=== PATIENT | male | born 1950 | race Caucasian/White ===

== ENCOUNTER 2017-10-28 11:40 | Observation (INO) ==
[2017-10-28] MEDS ORDERED: Aspirin 81 MG TAB.CHEW PO ONE (11:53)
--- NOTE | 2017-10-28 11:56 | Emergency Department Note ---
Disposition Clinical Impression: Chest pain Qualifiers: Chest pain type: unspecified Qualified Code(s): R07.9 - Chest pain, unspecified Disposition: Admitted As Inpatient Condition: Undetermined Time of Disposition: 13:02 Chest Pain HPI - General Chief Complaint: ED Chest Pain Stated Complaint: Chest Pain Time Seen by Provider: 10/28/17 11:42 Source: patient, family Mode of arrival: ambulatory Limitations: no limitations Vital Signs Reviewed: Yes Nursing Notes Reviewed: Yes - History of Present Illness HPI Narrative: 67-year-old male with history of diabetes, hyperlipidemia, hypertension, COPD, arrives to [facility] emergency department with concern for left-sided and retrosternal chest pain that occurred just prior to arrival. The patient was getting labs performed at another facility for kidney disease as well as a few other things and noted this left-sided chest discomfort. The patient states it radiated into his left shoulder. The patient denies any shortness of breath associated with it. Upon arrival to the emergency department the patient has an O2 saturation of 90% which is apparently the patient's baseline due to his COPD. Patient does not wear oxygen at home. The patient denies any nausea, vomiting, unilateral weakness, fever, cough, chills. The patient states his last stress test was over 2 years ago. He denies any other complaints at this time. He is chest pain-free. 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 Duration: intermittent, now resolved Pain Location: substernal, left chest Severity: moderate Severity scale (1-10): 5 Quality: tightness, heaviness Pain Radiation: LUE Improves with: nothing Worsens with: nothing Treatments prior to arrival chest pain: none - Related Data On Oral Contraceptives: No Home Medications Medication Instructions Recorded Confirmed Amlodipine Besylate 10 mg PO DAILY 05/13/16 10/28/17 Furosemide [Lasix] 40 mg PO QAM 05/13/16 10/28/17 Lisinopril/Hydrochlorothiazide 1 each PO DAILY 05/13/16 10/28/17 [Zestoretic 20-25 mg Tablet] Metformin HCl [Glucophage] 1,000 mg PO BID 05/13/16 10/28/17 Tamsulosin HCl [Flomax] 0.8 mg PO DAILY 05/13/16 10/28/17 Potassium Chloride [K-Tab ER] 20 meq PO BID 05/26/17 10/28/17 Terazosin [Hytrin] 5 mg PO HS 05/26/17 10/28/17 Atorvastatin [Lipitor] 40 mg PO HS 10/28/17 10/28/17 Furosemide [Lasix] 20 mg PO HS 10/28/17 10/28/17 Metoprolol XL (24 HR) Succ [Toprol 100 mg PO DAILY 10/28/17 10/28/17 XL] Onset-3 Acid Ethyl Esters [Lovaza] 2 gm PO BID 10/28/17 10/28/17 SitaGLIPtin [Januvia] 100 mg PO DAILY 10/28/17 10/28/17 Allergies Allergy/AdvReac Type Severity Reaction Status Date / Time No Known Allergies Allergy Verified 10/28/17 11:42 All systems ED: reviewed and negative except as stated. Constitutional: Denies: fever, chills, weakness ENT ED: Denies: throat pain, congestion Cardiovascular: Reports: chest pain Respiratory: Denies: dyspnea Gastrointestinal: Denies: abdominal pain, nausea, vomiting Genitourinary: Denies: urgency Musculoskeletal: Denies: back pain, neck pain, arthralgia, myalgia Integumentary: Denies: rash Neurological: Denies: headache Chest Pain PMH - Past Medical History Medical history: Reports: CHF, COPD, diabetes, hypertension Surgical history: Reports: non-contributory Psychiatric history: Reports: no psych history Prior Cardiac Testing/Procedures: Stress Test (5 years ago) - Social History Smoking Status: Current every day smoker Alcohol use: Reports: occasionally Drug use: Reports: none Physical Exam - General Limitations: no limitations General appearance: alert, in no apparent distress - Head Head exam: atraumatic - Eye Eye exam: Present: normal appearance, PERRL, EOMI - ENT ENT exam: normal exam, normal oropharynx, mucous membranes moist - Neck Neck exam: Present: normal inspection, full ROM, trachea midline - Respiratory Respiratory exam: Present: other (coarse breath sounds). Absent: respiratory distress, accessory muscle use - Cardiovascular Cardiovascular exam: Present: regular rate, normal rhythm, normal heart sounds - Abdominal Exam Abdominal exam: Present: soft, Non-Tender. Absent: tenderness, distention, guarding, rebound, rigidity - Extremities Exam Extremities exam: Present: full ROM, pedal edema (Trace pitting edema). Absent : tenderness Course Vital Signs Temperature 97.8 F 10/28/17 11:42 Pulse Rate 62 10/28/17 11:42 Respiratory Rate 13 10/28/17 11:42 Blood Pressure 128/77 10/28/17 11:42 O2 Sat by Pulse Oximetry 91 10/28/17 11:42 Temperature 98 F 10/28/17 14:42 Pulse Rate 61 10/28/17 14:42 Respiratory Rate 16 10/28/17 14:42 Blood Pressure 121/71 10/28/17 14:42 O2 Sat by Pulse Oximetry 93 10/28/17 14:42 Oxygen Delivery Oxygen Delivery Room Air Chest Pain - MDM Narrative Medical decision making narrative: Patient's work-up demonstrates no acute process. I am concerned about ACS given the symptoms, history, and timing. We will mix the patient to the hospitalist at this time, accepted by Dr. Mason. - Lab Data Lab results reviewed: Yes I reviewed the patient's lab results. Result diagrams: 10/28/17 12:05 10/28/17 12:05 Lab Results 10/28/17 10/28/17 10/28/17 Range/Units 12:05 12:05 12:05 WBC 7.5 (4.3-11.1) K/mcL RBC 5.57 H (4.19-5.50) M/mcL Hgb 15.8 (12.9-16.9) g/dL Hct 47.7 (37.5-50.1) % MCV 85.6 (83.0-100.0) fL MCH 28.4 (28.0-33.3) pg MCHC 33.1 (31.6-35.5) g/dL RDW 13.4 (11.5-14.5) % Plt Count 235 (140-400) K/mcL MPV 10.1 (9.4-12.4) fL Immature Gran % 0.4 (0-4) % Seg Neutrophils % 57.2 % Lymphocytes % 30.0 % Monocytes % 9.4 % Eosinophils % 2.5 % Basophils % 0.5 % Neutrophils # 4.3 (1.6-8.9) K/mcL Lymphocytes # 2.2 (0.6-4.6) K/mcL Monocytes # 0.7 (0.0-1.3) K/mcL Eosinophils # 0.2 (0.0-0.6) K/mcL Basophils # 0.0 (0.0-0.2) K/mcL Immature Plt Fraction 3.3 (1.1-6.1) % PT 11.9 (9.4-12.1) Seconds INR 1.1 APTT 40.2 H (26.0-36.0) Seconds Sodium (136-145) mEq/L Potassium (3.5-4.5) mEq/L Chloride (98-109) mEq/L Carbon Dioxide (19-29) mEq/L BUN (8-26) mg/dL Creatinine (0.72-1.25) mg/dL Est GFR ( Amer) (> 60) Est GFR (Non-Af Amer) (> 60) BUN/Creatinine Ratio (6-26) Glucose (70-99) mg/dL Calculated Osmolality (280-300) Calcium (8.6-10.8) mg/dL Troponin I (0-0.03) ng/mL B-Natriuretic Peptide 37 (0-100) pg/mL Amylase (25-125) Units/L 10/28/17 10/28/17 Range/Units 12:05 12:05 WBC (4.3-11.1) K/mcL RBC (4.19-5.50) M/mcL Hgb (12.9-16.9) g/dL Hct (37.5-50.1) % MCV (83.0-100.0) fL MCH (28.0-33.3) pg MCHC (31.6-35.5) g/dL RDW (11.5-14.5) % Plt Count (140-400) K/mcL MPV (9.4-12.4) fL Immature Gran % (0-4) % Seg Neutrophils % % Lymphocytes % % Monocytes % % Eosinophils % % Basophils % % Neutrophils # (1.6-8.9) K/mcL Lymphocytes # (0.6-4.6) K/mcL Monocytes # (0.0-1.3) K/mcL Eosinophils # (0.0-0.6) K/mcL Basophils # (0.0-0.2) K/mcL Immature Plt Fraction (1.1-6.1) % PT (9.4-12.1) Seconds INR APTT (26.0-36.0) Seconds Sodium 139 (136-145) mEq/L Potassium 4.1 (3.5-4.5) mEq/L Chloride 103 (98-109) mEq/L Carbon Dioxide 25 (19-29) mEq/L BUN 18 (8-26) mg/dL Creatinine 1.23 (0.72-1.25) mg/dL Est GFR ( Amer) > 60 (> 60) Est GFR (Non-Af Amer) 59 L (> 60) BUN/Creatinine Ratio 15 (6-26) Glucose 129 H (70-99) mg/dL Calculated Osmolality 292 (280-300) Calcium 9.8 (8.6-10.8) mg/dL Troponin I 0.01 (0-0.03) ng/mL B-Natriuretic Peptide (0-100) pg/mL Amylase 46 (25-125) Units/L - Radiology Data Radiology results reviewed: Yes I reviewed the patient's radiology results. - EKG Data EKG attestation: Yes I reviewed and interpreted this EKG. EKG results narrative: Heart rate 62 bpm. IA interval 186 ms. QTC 4:15 milliseconds. Normal sinus rhythm. No ST elevation or ST depression noted. EKG similar to EKG from 2016. No acute changes noted. Attestation Statement - Attestation Attestation: I examined this patient and my medical decision-making was reviewed with the Resident Physician, Dr. Dowling. I agree with the documented findings, disposition and treatment plan as described except to the extent set forth below. Patient is a 67-year-old white male with a history of COPD, hypertension, diabetes who presents to the emergency department with complaints of left-sided chest pain radiating through to his back which was going on just prior to arrival to the emergency department today. Patient's symptoms had resolved on arrival and he is chest pain-free currently. Patient's vitals are stable he is slightly hypoxic on room air running 90-92%, stating that he is supposed to be on nasal cannula oxygen at all times but he is noncompliant. He denies any associated symptoms with this pain no diaphoresis, no abdominal pain or flank pain, no shortness of breath no other associated symptoms. Patient states he last had a stress test anywhere from 3-5 years ago. I agree with patient's physical exam findings as documented. Patient without acute ischemia on initial EKG, unchanged from prior. Patient was given aspirin on arrival and had a lab evaluation including troponin which was within normal limits. Patient's chest x-ray is unremarkable. Due to patient's risk factors as well as concerning symptoms we feel he would benefit from hospitalization. Upon talking over the case with the hospitalist he requested CTA of the chest prior to admission. Patient underwent CTA which was unremarkable for any aortic abnormality. Patient will be admitted for further evaluation and management of chest pain.
[2017-10-28 12:12] LABS: Basophils % 0.5 %; Eosinophils # 0.2 K/mcL (0.0-0.6); Eosinophils % 2.5 %; Hematocrit 47.7 % (37.5-50.1); Hemoglobin 15.8 g/dL (12.9-16.9); Immature Granulocytes % 0.4 % (0-4); Immature Platelets 3.3 % (1.1-6.1); Lymphocytes # 2.2 K/mcL (0.6-4.6); Mean Corpuscular HGB Conc 33.1 g/dL (31.6-35.5); Mean Corpuscular Hemoglobin 28.4 pg (28.0-33.3); Mean Corpuscular Volume 85.6 fL (83.0-100.0); Mean Platelet Volume 10.1 fL (9.4-12.4); Monocytes # 0.7 K/mcL (0.0-1.3); Monocytes % 9.4 %; Neutrophils # 4.3 K/mcL (1.6-8.9); Platelet Count 235 K/mcL (140-400); Red Blood Count 5.57 M/mcL (4.19-5.50); Red Cell Distribution Width 13.4 % (11.5-14.5); Segmented Neutrophils % 57.2 %
[2017-10-28 12:17] LABS: INR 1.1; Prothrombin Time 11.9 Seconds (9.4-12.1)
[2017-10-28 12:19] LABS: Activated Partial Thrombo Time 40.2 Seconds (26.0-36.0)
[2017-10-28 12:23] LABS: BUN/Creatinine Ratio 15 (6-26); Blood Urea Nitrogen 18 mg/dL (8-26); Calcium 9.8 mg/dL (8.6-10.8); Carbon Dioxide 25 mEq/L (19-29); Chloride 103 mEq/L (98-109); Glucose 129 mg/dL (70-99); Osmolality,Calculated 292 (280-300); Potassium 4.1 mEq/L (3.5-4.5); Sodium 139 mEq/L (136-145); eGFR For African Americans > 60 (> 60); eGFR For Non-African Americans 59 (> 60)
[2017-10-28] MEDS ORDERED: D5% in Water 1,000 ML IVC PRN (13:37)
[2017-10-28] MEDS ORDERED: *HR* Promethazine 25 MG/ML VIAL IVP PRN (13:37)
[2017-10-28] MEDS ORDERED: Dextrose Gel 15 GM PO PRN ×2 (13:37)
[2017-10-28] MEDS ORDERED: *HR* Morphine 2 MG/ML SYRINGE IVP PRN (13:37)
[2017-10-28] MEDS ORDERED: Ondansetron 4 MG/2 ML VIAL IVP PRN (13:37)
[2017-10-28] MEDS ORDERED: *HR* HYDROcodone/Acet 5/325 mg TABLET PO PRN (13:37)
[2017-10-28] MEDS ORDERED: *HR* Dextrose 50 % in Water (Syg) 50 ML SYRINGE IVP PRN (13:37)
[2017-10-28] MEDS ORDERED: Naloxone 0.4 MG/ML INJ IVP PRN (13:37)
--- NOTE | 2017-10-28 13:56 | Internal Med History&Physical ---
<Santo [place]armiento - Last Filed: 10/28/17 14:21> Date of Encounter: 10/28/17 Time of Encounter: 13:53 Assessment and Plan (1) Chest pain Current visit: Yes Status: Acute Reported retrosternal chest pain is left-sided with radiation to the left shoulder reported as beginning this morning lasting approximately 10 minutes. no prior history of AR. Risk factors include diabetes, HLD, HTN, COPD, smoking and obesity. Currently reporting no chest pain at this time, hemodynamically stable, no respiratory distress. Will also check amylase as he is report left retrosternal pain with left subscapular pain Initial troponin negative, chest x-ray negative Presented with hypoxia but does have long-standing history of COPD; however obtain CTA to rule out additional etiology Last TTE was in 2016-showed an EF of 60% with mild left ventricular diastolic dysfunction Reports last stress test was approximately 4 years ago with no ischemia Due to multiple risk factors and her score of 6 continue to rule out ACS TTE now Serial troponins Nuclear stress in the morning Nothing by mouth after midnight-no caffeine, no nicotine. Hold morning dose of beta wally We will hold off on cardio consult for now Continuous telemetry, continuous O2 monitoring CBC, BMP in the morning Qualifiers: Chest pain type: unspecified Qualified Code(s): R07.9 - Chest pain, unspecified (2) DM (diabetes mellitus) Current visit: Yes Status: Acute History of type 2 diabetes. 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 Patient takes 100 mg of Toprol-XL daily. Has already taken today's dose. We will hold tomorrow morning's dose until after stress test Qualifiers: Hypertension type: essential hypertension Qualified Code(s): I10 - Essential (primary) hypertension (4) COPD (chronic obstructive pulmonary disease) Current visit: Yes Status: Acute Fine bilateral expiratory wheezing and hypoxia noted on arrival to ED. Related to COPD, not in any distress since starting 2LNC, he is to wear O2 at home but refuses. education provided on importance of oxygen compliance; especially given his history and current morbidities Start solumedrol 40mg IVP to reduce airway inflammation Respiratory support via NC, titrate to maintain O2 >92% duonebs every 4 hours when necessary Qualifiers: Qualified Code(s): J44.9 - Chronic obstructive pulmonary disease, unspecified (5) Hypoxia Current visit: Yes Status: Acute Was hypoxic upon arrival. Long-standing history of COPD requiring oxygen. Patient reports he does not wear oxygen at home is normally able to maintain oxygen saturations around 90-92%. However, he presented as hypoxic to the ED. Improved with 2 L nasal cannula, in no distress at this time. Fine expiratory wheezes auscultated bilaterally lungs. see plan above (6) DVT prophylaxis Current visit: Yes Status: Acute Heparin 5000 units subcutaneous twice a day Internal Medicine - H&P: HPI Chief complaint: CP Admitted From: Home Plans for Post Hospital Care: Home History of present illness: Mr. Lance is a 67 year old male with history of diabetes, hyperlipidemia, hypertension, COPD, who presents to [facility] today with retrosternal chest pain beginning this morning and lasting approximately 10 minutes. He reports the chest pain is left-sided with left subscapular radiation. No prior history of AR. Although does also risk factors. Denies any fever, chills, shortness of breath, diaphoresis, nausea, vomiting. Did not receive aspirin or nitroglycerin in the ED. Currently chest pain-free at this time. Heart score of 6, with associated risk factors he is being admitted for further workup and monitoring. Past Med Surg Social Fam HX - Past Medical History Medical history: CHF, COPD, diabetes, hypertension Psychiatric history: no psych history - Past Surgical History Surgical History: non-contributory - Social History Smoking Status: Current every day smoker Alcohol use: occasionally Drug use: none - Family History Mother Hx Family Endocrine Disorder: Yes (DM, CKD) Father Hx Family Neurologic Disorders: Yes (CVA) Internal Medicine - H&P: Meds Amlodipine Besylate 10 mg PO DAILY 05/13/16 [History] Furosemide [Lasix] 40 mg PO QAM 05/13/16 [History] Lisinopril/Hydrochlorothiazide [Zestoretic 20-25 mg Tablet] 1 each PO DAILY 11/28 [History] Metformin HCl [Glucophage] 1,000 mg PO BID 05/13/16 [History] Tamsulosin HCl [Flomax] 0.8 mg PO DAILY 05/13/16 [History] Potassium Chloride [K-Tab ER] 20 meq PO BID 05/26/17 [History] Terazosin [Hytrin] 5 mg PO HS 05/26/17 [History] Atorvastatin [Lipitor] 40 mg PO HS 10/28/17 [History] Furosemide [Lasix] 20 mg PO HS 10/28/17 [History] Metoprolol XL (24 HR) Succ [Toprol XL] 100 mg PO DAILY 10/28/17 [History] [place]-3 Acid Ethyl Esters [Lovaza] 2 gm PO BID 10/28/17 [History] SitaGLIPtin [Januvia] 100 mg PO DAILY 10/28/17 [History] 3 Allergy/AdvReac Type Severity Reaction Status Date / Time No Known Allergies Allergy Verified 10/28/17 11:42 All Systems PM: A 10-system review of systems was performed and is negative for pertinent findings except as documented above in the HPI. - Constitutional Constitutional: no chills, no fatigue, no fever(s), no night sweats, no weakness - EENT Eyes: no change in vision, no discharge, no pain, no photophobia Ears: no ear discharge, no ear pain, no tinnitus Nose, mouth and throat: no dysphagia, no nasal discharge, no neck pain, no sore throat - Cardiovascular Cardiovascular ROS IM: chest pain, no diaphoresis, no dyspnea, no edema, no lightheadedness, no palpitations, no syncope - Respiratory Respiratory: no cough, no dyspnea, no wheezing, no excessive phlegm production - Gastrointestinal Gastrointestinal: no abdominal pain, no diarrhea, no hematemesis, no hematochezia, no melena, no nausea, no vomiting - Musculoskeletal Musculoskeletal ROS IM: no numbness, no tingling - Integumentary Integumentary IM: no rash, no unusual bruising - Neurological Neurological ROS: no confusion, no convulsions, no focal weakness, no numbness, no tingling, no tremor(s) - Hematologic/Lymphatic Hematologic/Lymphatic: no easy bruising - Constitutional Vitals: Temp Pulse Resp BP Pulse Ox 97.8 F 61 12 138/69 91 10/28/17 11:42 10/28/17 13:35 10/28/17 13:42 10/28/17 13:42 10/28/17 13:35 General appearance: Present: A&O X 0, A&O X 3, no acute distress, obese, answers questions appropriately - Head Head exam: Present: atraumatic, normocephalic - Eye Eye exam: Present: PERRL, conjuntiva pink, sclera anicteric Pupils: Present: PERRL - Neck Neck exam general surgery: Present: supple, trachea midline. Absent: lymphadenopathy - Respiratory Respiratory exam: Present: CTAB. Absent: accessory muscle use, rales, rhonchi, wheezes - Cardiovascular Cardiovascular exam: Present: RRR, +S1, +S2. Absent: diastolic murmur, gallop, rubs, systolic murmur - GI/Abdominal GI/Abdominal exam: Present: normal bowel sounds, soft, no peritoneal signs. Absent: distended, tenderness - Extremities Exam Extremities exam: Present: warm, radial pulses palpable and symmetrical. Absent : calf tenderness, cyanotic, pedal edema - Neurological Exam Neurological exam: Present: CN II-XII intact, oriented X3, no focal deficits. Absent: pronater drift, facial droop, speech deficit - Skin Skin exam: Present: dry, intact Internal Med - H&P Results - Labs CBC & Chem 7: 10/28/17 12:05 10/28/17 12:05 - EKG Data -: EKG Interpreted by Myself EKG shows normal: sinus rhythm Rate: normal - EKG Data Prior EKG available for review: yes When compared to previous EKG: there is no significant change Interpretation IM: normal EKG EKG comments: 10/28/17 14:00 NSR rate of [address] elevation or depression noted - Diagnostic Studies Chest x-ray Additional comments: no acute pulmonary process <Candi Mason - Last Filed: 10/28/17 16:09> Date of Encounter: 10/28/17 Internal Medicine - H&P: HPI History of present illness: Mr. Lance is a 67 year old male All Systems PM: A 10-system review of systems was performed and is negative for pertinent findings except as documented above in the HPI. - Constitutional Vitals: Temp Pulse Resp BP Pulse Ox 98 F 61 16 121/71 93 10/28/17 14:42 10/28/17 14:42 10/28/17 14:42 10/28/17 14:42 10/28/17 14:42 Internal Med - H&P Results - Labs CBC & Chem 7: 10/28/17 12:05 10/28/17 12:05 - Attending Attestation I examined this patient and my medical decision-making was reviewed with the Resident Physician. I agree with the documented findings, disposition and treatment plan as described except to the extent set forth below.
[2017-10-28 14:15] LABS: Amylase 46 Units/L (25-125)
[2017-10-28] MEDS ORDERED: Ipratropium/Albuterol Neb 3 ML IH PRN (14:31)
[2017-10-28] MEDS: Insulin LISPRO 300 UNITS/3 ML VIAL SQ SCH ×2 (16:48→22:04)
[2017-10-28] MEDS: MethylPREDNISolone 40 MG/ML VIAL IVP SCH (16:58)
[2017-10-28] MEDS: *HR* Heparin 5,000 UNIT/ML VIAL SQ SCH (16:58)
[2017-10-28] MEDS ORDERED: NON-FORMULARY MEDICATION 1 EACH EACH (Omega-3 Acid Ethyl Esters [Lovaza] 2 GM) PO SCH (21:00)
[2017-10-28] MEDS: Furosemide 20 MG TABLET PO SCH (22:04)
[2017-10-29] MEDS: MethylPREDNISolone 40 MG/ML VIAL IVP SCH ×2 (00:05→10:35)
[2017-10-29 01:23] LABS: Basophils % 0.2 %; Eosinophils % 0.2 %; Hematocrit 45.8 % (37.5-50.1); Hemoglobin 15.2 g/dL (12.9-16.9); Immature Granulocytes % 0.7 % (0-4); Lymphocytes # 1.1 K/mcL (0.6-4.6); Lymphocytes % 19.3 %; Mean Corpuscular HGB Conc 33.2 g/dL (31.6-35.5); Mean Corpuscular Hemoglobin 28.5 pg (28.0-33.3); Mean Corpuscular Volume 85.8 fL (83.0-100.0); Mean Platelet Volume 10.2 fL (9.4-12.4); Monocytes # 0.1 K/mcL (0.0-1.3); Monocytes % 2.1 %; Neutrophils # 4.5 K/mcL (1.6-8.9); Platelet Count 230 K/mcL (140-400); Red Blood Count 5.34 M/mcL (4.19-5.50); Red Cell Distribution Width 13.2 % (11.5-14.5); Segmented Neutrophils % 77.5 %
[2017-10-29 01:38] LABS: Chol/HDL Ratio 3.3 (0-4.9)
[2017-10-29] MEDS: *HR* Heparin 5,000 UNIT/ML VIAL SQ SCH ×2 (05:53→17:17)
[2017-10-29] MEDS: Insulin LISPRO 300 UNITS/3 ML VIAL SQ SCH ×4 (08:30→20:17)
[2017-10-29] MEDS: Furosemide 20 MG TABLET PO SCH ×2 (10:36→20:18)
[2017-10-29] MEDS: Metoprolol XL (24 HR) Succ 50 MG TAB.ER.24H PO SCH (10:36)
[2017-10-29] MEDS: amLODIPine 5 MG TABLET PO SCH (10:36)
[2017-10-29] MEDS: Aspirin 81 MG TAB.CHEW PO SCH (10:36)
--- NOTE | 2017-10-29 12:59 | Internal Med Progress Note ---
Date of Encounter: 10/29/17 Time of Encounter: 12:40 - Assessment and plan (1) Chest pain Current Visit: Yes Status: Acute Assessment and plan: resolved at this time awaiting nuclear stress test continue aspirin, lipitor tele monitoring 2D echo reported: LVEF 55%. Mild concentric left ventricular hypertrophy. Atypical septal motion consistent with bundle branch block. Mildly dilated left ventricle. Mild left ventricular diastolic dysfunction. Normal right ventricular structure and function. No evidence of pulmonary hypertension. No significant valvular dysfunction. 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 Qualified Code(s): E11.9 - Type 2 diabetes mellitus without complications (3) HTN (hypertension) Current Visit: Yes Status: Chronic Assessment and plan: BP within acceptable range continue home meds Qualifiers: Hypertension type: essential hypertension Qualified Code(s): I10 - Essential (primary) hypertension (4) Hypoxia Current Visit: Yes Status: Resolved Assessment and plan: resolved concern for COPD exacerbation started on systemic steroids upon arrival clinically improved d/c Iv steroids and continue PO prednisone continue bronchodilator support pt reports of having home oxygen but has not been compliant with it (5) COPD (chronic obstructive pulmonary disease) Current Visit: Yes Status: Acute Assessment and plan: as listed above Qualifiers: COPD type: COPD with acute exacerbation Qualified Code(s): J44.1 - Chronic obstructive pulmonary disease with (acute) exacerbation (6) DVT prophylaxis Current Visit: Yes Status: Acute Assessment and plan: Heparin SQ (7) Morbid obesity with BMI of 40.0-44.9, adult Current Visit: Yes Status: Chronic - Subjective Interval history: Patient seen and examined at bedside. Resting comfortably in chair and denies any chest pain at this time. Awaiting part two of the nuclear stress test. - Constitutional Vitals: Temp Pulse Resp BP Pulse Ox 97.8 F 58 16 121/70 93 10/29/17 11:07 10/29/17 11:07 10/29/17 11:07 10/29/17 11:07 10/29/17 11:07 General appearance: Present: cooperative, A&O X 3, morbidly obese, no acute distress, answers questions appropriately - Head Head exam: Present: atraumatic, normocephalic - Eye Eye exam: Present: conjuntiva pink, sclera anicteric - Respiratory Respiratory exam: Present: CTAB. Absent: accessory muscle use, rales, rhonchi, wheezes - Cardiovascular Cardiovascular exam: Present: RRR, +S1, +S2. Absent: diastolic murmur, gallop, rubs, systolic murmur - GI/Abdominal GI/Abdominal exam: Present: normal bowel sounds, soft, no peritoneal signs. Absent: distended, tenderness - Extremities Exam Extremities exam: Present: warm, radial pulses palpable and symmetrical. Absent : calf tenderness, pedal edema - Neurological Exam Neurological exam: Present: alert, oriented X3 - Psychiatric Psychiatric exam: Present: normal affect, normal mood Internal Medicine: Result - Labs CBC & Chem 7: 10/29/17 00:58 10/28/17 12:05 Labs: Short CBC 10/29/17 Range/Units 00:58 WBC 5.8 (4.3-11.1) K/mcL Hgb 15.2 (12.9-16.9) g/dL Hct 45.8 (37.5-50.1) % Plt Count 230 (140-400) K/mcL Neutrophils # 4.5 (1.6-8.9) K/mcL Cardiac Enzymes 10/28/17 10/29/17 Range/Units 18:15 00:58 Troponin I 0.01 0.01 (0-0.03) ng/mL - ABG Interpretation ABG results: PT/INR, D-dimer PT 11.9 Seconds (9.4-12.1) 10/28/17 12:05 - Impressions Impressions Echocardiogram 10/28/17 13:36 Impressions: LVEF 55%. Mild concentric left ventricular hypertrophy. Atypical septal motion consistent with bundle branch block. Mildly dilated left ventricle. Mild left ventricular diastolic dysfunction. Normal right ventricular structure and function. No evidence of pulmonary hypertension. No significant valvular dysfunction. Left Ventricular Wall Motion: Rest Echo Findings All wall segments showed normal motion. Findings: Study Quality * Technically sub-optimal due to body habitus. ECG Findings * Sinus rhythm with BBB. Left Ventricle * LVEF 55%. * Normal LV function. * Mild concentric left ventricular hypertrophy. * Mildly dilated left ventricle. * Atypical septal motion consistent with bundle branch block. * Mild left ventricular diastolic dysfunction. Right Ventricle * Normal right ventricular structure and function. Left Atrium * Moderately dilated left atrium. Right Atrium * Moderately dilated right atrium. Aortic Valve * Trileaflet aortic valve. * Mildly calcified aortic valve leaflets. * No aortic regurgitation. * No aortic stenosis. Mitral Valve * Normal mitral valve structure and function. * No mitral regurgitation. * No mitral stenosis. Tricuspid Valve * Normal tricuspid valve structure and function. * Trace tricuspid regurgitation. * No evidence of pulmonary hypertension. Pulmonic Valve * Normal pulmonic valve structure and function. * No pulmonic regurgitation. Aorta * Normally sized aortic root. Pericardium * The pericardium appears normal. IVC * Normal IVC dimensions and inspiratory collapse. Pulmonary Artery * Normal visualized portions of the main pulmonary artery. Consult Discharge Plan - Plan Referrals: Clemente Rodríguez DO [Primary Care Provider] -
[2017-10-30] MEDS: *HR* Heparin 5,000 UNIT/ML VIAL SQ SCH ×2 (05:28→17:24)
[2017-10-30 06:14] LABS: Basophils % 0.2 %; Eosinophils # 0.1 K/mcL (0.0-0.6); Eosinophils % 0.5 %; Hematocrit 46.1 % (37.5-50.1); Hemoglobin 15.6 g/dL (12.9-16.9); Immature Granulocytes % 0.3 % (0-4); Lymphocytes # 2.5 K/mcL (0.6-4.6); Lymphocytes % 21.6 %; Mean Corpuscular HGB Conc 33.8 g/dL (31.6-35.5); Mean Corpuscular Hemoglobin 28.9 pg (28.0-33.3); Mean Corpuscular Volume 85.5 fL (83.0-100.0); Mean Platelet Volume 10.5 fL (9.4-12.4); Monocytes # 0.9 K/mcL (0.0-1.3); Monocytes % 7.7 %; Platelet Count 229 K/mcL (140-400); Red Blood Count 5.39 M/mcL (4.19-5.50); Red Cell Distribution Width 13.3 % (11.5-14.5); Segmented Neutrophils % 69.7 %
[2017-10-30 06:27] LABS: BUN/Creatinine Ratio 25 (6-26); Blood Urea Nitrogen 26 mg/dL (8-26); Calcium 9.2 mg/dL (8.6-10.8); Carbon Dioxide 27 mEq/L (19-29); Chloride 103 mEq/L (98-109); Glucose 163 mg/dL (70-99); Magnesium 1.8 mg/dL (1.6-2.6); Osmolality,Calculated 296 (280-300); Phosphorous 4.1 mg/dL (2.3-4.7); Potassium 3.7 mEq/L (3.5-4.5); Sodium 139 mEq/L (136-145); eGFR For African Americans > 60 (> 60); eGFR For Non-African Americans > 60 (> 60)
[2017-10-30] MEDS ORDERED: Regadenoson 0.4 MG/5 ML SYRINGE IVP ONE (06:35)
[2017-10-30] MEDS: Insulin LISPRO 300 UNITS/3 ML VIAL SQ SCH ×4 (08:45→23:41)
--- NOTE | 2017-10-30 10:42 | Electrocardiograph Report ---
[address] [id number] Test Date: 2017-10-28 Pat Name: Blayne Burbank Department: 113 Room: 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
[2017-10-30] MEDS: Furosemide 20 MG TABLET PO SCH ×2 (10:56→20:27)
[2017-10-30] MEDS: predniSONE 20 MG TABLET PO SCH (10:56)
[2017-10-30] MEDS: Aspirin 81 MG TAB.CHEW PO SCH (10:56)
[2017-10-30] MEDS: amLODIPine 5 MG TABLET PO SCH (10:56)
[2017-10-30] MEDS: Metoprolol XL (24 HR) Succ 50 MG TAB.ER.24H PO SCH (10:57)
--- NOTE | 2017-10-30 13:18 | Cardiothoracic Consult Note ---
Date of Encounter: 10/30/17 Time of Encounter: 10:45 Assessment and Plan (1) Chest pain Current Visit: Yes Status: Acute resolved at this time Manage medically: ASA 81 mg PO daily Metoprolol 100 mg PO daily Atorvastatin 40 mg PO HS Lasix 20 mg PO HS, 40 mg PO AM Norvasc 10 mg PO daily 2D echo reported: LVEF 55%. Mild concentric left ventricular hypertrophy. Atypical septal motion consistent with bundle branch block. Mildly dilated left ventricle. Mild left ventricular diastolic dysfunction. Normal right ventricular structure and function. No evidence of pulmonary hypertension. No significant valvular dysfunction. Qualifiers: Chest pain type: unspecified Qualified Code(s): R07.9 - Chest pain, unspecified (2) HTN (hypertension) Current Visit: Yes Status: Chronic The assessment and plan as outlined above was discussed with the patient and/or family members who expressed understanding and agreement. All questions were answered. Qualifiers: Hypertension type: essential hypertension Qualified Code(s): I10 - Essential (primary) hypertension (3) COPD (chronic obstructive pulmonary disease) Current Visit: Yes Status: Acute The assessment and plan as outlined above was discussed with the patient and/or family members who expressed understanding and agreement. All questions were answered. Qualifiers: COPD type: COPD with acute exacerbation Qualified Code(s): J44.1 - Chronic obstructive pulmonary disease with (acute) exacerbation - History of Present Illness Consult date: 10/30/17 Chief complaint: Chest pain History of present illness: Mr. Lance is a 67 year old male with a PMH of DM, HLD, HTN, COPD who presented to the hospital with the chief complaint of left sided retrosternal chest pain. This pain was sudden in onset and occurred just prior to arrival. He described as sharp, stabbing pain in the portion of his left chest radiating up to his left shoulder. Upon arrival to the hospital, patient's O2 saturation was 90%. This is close to his baseline due to underlying COPD. Patient is not on oxygen at home. He is an admitted smoker. His last stress test was approximately 2 years ago, with no abnormal findings present. No known Hx of CAD. Upon arrival, patient was given aspirin and was placed on O2. His chest pain resolved shortly thereafter. Troponin was within normal limits. CXR was unremarkable. ECHO was obtained and revealed the following: EF 55%, mild concentric L ventricular hypertrophy, atypical septal motion consistent with BBB, mildly dilated L ventricle, mild L ventricular diastolic dysfunction. Stress test was performed. It revealed the presence of a small sized, moderate intensity, reversible apical lateral and apex defect possibly due to ischemia. Patient was seen and examined this morning. Patient denies having any chest pain. He denies having any SOB, dizziness, diaphoresis, or cough. He is resting comfortably and has no complaints at this time. Currently on O2 via [place]. Vital signs this morning were within normal limits. Past Med Surg Social Fam HX - Past Medical History Medical history: CHF, COPD, diabetes, hypertension Psychiatric history: no psych history - Past Surgical History Surgical History: non-contributory - Social History Smoking Status: Current every day smoker Packs per day: 1/4 pack Smokeless Tobacco Status: No Alcohol use: occasionally Drug use: none - Family History Mother Hx Family Endocrine Disorder: Yes (DM, CKD) Father Hx Family Neurologic Disorders: Yes (CVA) Medications and Allergies Amlodipine Besylate 10 mg PO DAILY 05/13/16 [History] Furosemide [Lasix] 40 mg PO QAM 05/13/16 [History] Lisinopril/Hydrochlorothiazide [Zestoretic 20-25 mg Tablet] 1 each PO DAILY 11/28 [History] Metformin HCl [Glucophage] 1,000 mg PO BID 05/13/16 [History] Tamsulosin HCl [Flomax] 0.8 mg PO DAILY 05/13/16 [History] Potassium Chloride [K-Tab ER] 20 meq PO BID 05/26/17 [History] Terazosin [Hytrin] 5 mg PO HS 05/26/17 [History] Atorvastatin [Lipitor] 40 mg PO HS 10/28/17 [History] Furosemide [Lasix] 20 mg PO HS 10/28/17 [History] Metoprolol XL (24 HR) Succ [Toprol XL] 100 mg PO DAILY 10/28/17 [History] [place]-3 Acid Ethyl Esters [Lovaza] 2 gm PO BID 10/28/17 [History] SitaGLIPtin [Januvia] 100 mg PO DAILY 10/28/17 [History] 3 Allergy/AdvReac Type Severity Reaction Status Date / Time No Known Allergies Allergy Verified 10/28/17 11:42 All Systems Review: A 10-system review of systems was performed and is negative for pertinent findings except as documented above in the HPI. - Constitutional Constitutional: no fever(s), no lethargy, no weakness - Cardiovascular Cardiovascular: no chest pain at rest, no chest pain with exertion, no diaphoresis, no dyspnea at rest, no dyspnea on exertion, no irregular heart rhythm - Respiratory Respiratory: no cough, no dyspnea Physical Examination Vital Signs, Last 4 Hours Temp Pulse Resp BP Pulse Ox 10/30/17 11:17 98.3 F 52 16 112/67 94 General: Conversant, No Apparent Distress Neck: No JVD Cardiac: Reg Rate and Rhythm, Normal S1 and S2 Musculoskeletal: No Chest Wall Tenderness Extremities: No Edema, Normal Pulses Results 10/30/17 05:43 10/30/17 05:43 Lab Results, Last 24 hours 10/30/17 10/30/17 05:43 05:43 WBC 11.5 H D Hgb 15.6 Hct 46.1 Plt Count 229 Sodium 139 Potassium 3.7 Chloride 103 Carbon Dioxide 27 BUN 26 Creatinine 1.02 Glucose 163 H Calcium 9.2 Magnesium 1.8 Consult Discharge Plan - Plan Referrals: Clemente Rodríguez DO [Primary Care Provider] -
--- NOTE | 2017-10-30 13:20 | Internal Med Progress Note ---
Date of Encounter: 10/30/17 Time of Encounter: 15:10 - Assessment and plan (1) Abnormal stress test Current Visit: Yes Status: Acute Assessment and plan: Cardiology on board consultation appreciated scheduled for [facility] in am NPO after midnight (2) Chest pain Current Visit: Yes Status: Acute Assessment and plan: resolved at this time abnormal stress test cardiology evaluation requested continue aspirin, lipitor tele monitoring 2D echo reported: LVEF 55%. Mild concentric left ventricular hypertrophy. Atypical septal motion consistent with bundle branch block. Mildly dilated left ventricle. Mild left ventricular diastolic dysfunction. Normal right ventricular structure and function. No evidence of pulmonary hypertension. No significant valvular dysfunction. Qualifiers: Chest pain type: unspecified Qualified Code(s): R07.9 - Chest pain, unspecified (3) DM (diabetes mellitus) Current Visit: Yes Status: Chronic Assessment and plan: continue to hold oral antihyperglycemic agents sliding scale insulin algorithm monitor FS and BG ADA diet Qualifiers: Diabetes mellitus type: type 2 Diabetes mellitus complication status: without complication Diabetes mellitus senior care insulin use: without senior care use Qualified Code(s): E11.9 - Type 2 diabetes mellitus without complications (4) HTN (hypertension) Current Visit: Yes Status: Chronic Assessment and plan: BP within acceptable range continue home meds Qualifiers: Hypertension type: essential hypertension Qualified Code(s): I10 - Essential (primary) hypertension (5) Hypoxia Current Visit: Yes Status: Resolved Assessment and plan: resolved concern for COPD exacerbation started on systemic steroids upon arrival clinically improved continue PO prednisone continue bronchodilator support pt reports of having home oxygen but has not been compliant with it (6) COPD (chronic obstructive pulmonary disease) Current Visit: Yes Status: Acute Assessment and plan: as listed above Qualifiers: COPD type: COPD with acute exacerbation Qualified Code(s): J44.1 - Chronic obstructive pulmonary disease with (acute) exacerbation (7) DVT prophylaxis Current Visit: Yes Status: Acute Assessment and plan: Heparin SQ (8) Morbid obesity with BMI of 40.0-44.9, adult Current Visit: Yes Status: Chronic - Subjective Interval history: Patient seen and examined at bedside. Resting in chair and denies any discomfort at this time. s/p stress test which was abnormal concerning for small area of possible ischemia. Cardiology consultation was requested. pt scheduled for [facility] in am - Constitutional Vitals: Temp Pulse Resp BP Pulse Ox 98.3 F 52 16 112/67 94 10/30/17 11:17 10/30/17 11:17 10/30/17 11:17 10/30/17 11:17 10/30/17 11:17 General appearance: Present: cooperative, A&O X 3, morbidly obese, no acute distress, answers questions appropriately - Head Head exam: Present: atraumatic, normocephalic - Eye Eye exam: Present: conjuntiva pink, sclera anicteric - Respiratory Respiratory exam: Present: decreased breath sounds. Absent: respiratory distress, wheezes, tachypnea - Cardiovascular Cardiovascular exam: Present: RRR, +S1, +S2. Absent: diastolic murmur, gallop, rubs, systolic murmur - GI/Abdominal GI/Abdominal exam: Present: normal bowel sounds, soft, no peritoneal signs. Absent: distended, tenderness - Extremities Exam Extremities exam: Present: warm, radial pulses palpable and symmetrical. Absent : calf tenderness - Neurological Exam Neurological exam: Present: alert, oriented X3 Internal Medicine: Result - Labs CBC & Chem 7: 10/30/17 05:43 10/30/17 05:43 Labs: Short CBC 10/30/17 Range/Units 05:43 WBC 11.5 H D (4.3-11.1) K/mcL Hgb 15.6 (12.9-16.9) g/dL Hct 46.1 (37.5-50.1) % Plt Count 229 (140-400) K/mcL Neutrophils # 8.0 (1.6-8.9) K/mcL BMP 10/30/17 05:43 Sodium 139 Potassium 3.7 Chloride 103 Carbon Dioxide 27 BUN 26 Creatinine 1.02 Glucose 163 H Calcium 9.2 - ABG Interpretation ABG results: PT/INR, D-dimer PT 11.9 Seconds (9.4-12.1) 10/28/17 12:05 Consult Discharge Plan - Plan Referrals: Clemente Rodríguez DO [Primary Care Provider] -
--- NOTE | 2017-10-30 13:26 | Cardiology Consult Note ---
<Sanjay Ingram - Last Filed: 10/30/17 14:01> Date of Encounter: 10/30/17 Time of Encounter: 10:45 Assessment and Plan (1) Chest pain Current Visit: Yes Status: Acute CP resolved at this time 2D echo reported: -LVEF 55%. -Mild concentric left ventricular hypertrophy. -Atypical septal motion consistent with bundle branch block. -Mildly dilated left ventricle. -Mild left ventricular diastolic dysfunction. -Normal right ventricular structure and function. -No evidence of pulmonary hypertension. -No significant valvular dysfunction. -Stress test revealed the presence of a small sized, moderate intensity, reversible apical lateral and apex defect possibly due to ischemia -Manage medically for the time being Qualifiers: Chest pain type: unspecified Qualified Code(s): R07.9 - Chest pain, unspecified (2) HTN (hypertension) Current Visit: Yes Status: Chronic Well controlled; BP this morning was 112/67. Plan: -Metoprolol 100 mg PO daily -Atorvastatin 40 mg PO HS -Lasix 20 mg PO HS, 40 mg PO AM -Norvasc 10 mg PO daily Qualifiers: Hypertension type: essential hypertension Qualified Code(s): I10 - Essential (primary) hypertension (3) COPD (chronic obstructive pulmonary disease) Current Visit: Yes Status: Acute Patient's SOB possibly 2/2 COPD exacerbation. Plan: -Continue O2 via [place] and oral prednisone -Bronchodilator support -Follow up with pulmonology in the outpatient setting. Qualifiers: COPD type: COPD with acute exacerbation Qualified Code(s): J44.1 - Chronic obstructive pulmonary disease with (acute) exacerbation Discussion w patient/family: The assessment and plan as outlined above was discussed with the patient and/or family members who expressed understanding and agreement. All questions were answered. Thank you for involving us in the care of your patient. Please call with any questions. History of Present Illness History of present illness: Mr. Lance is a 67 year old male with a PMH of DM, HLD, HTN, COPD who presented to the hospital with the chief complaint of left sided retrosternal chest pain. This pain was sudden in onset and occurred just prior to arrival. He described as sharp, stabbing pain in the portion of his left chest radiating up to his left shoulder. Upon arrival to the hospital, patient's O2 saturation was 90%. This is close to his baseline due to underlying COPD. Patient is not on oxygen at home. He is an admitted smoker. His last stress test was approximately 2 years ago, with no abnormal findings present. No known Hx of CAD. Upon arrival, patient was given aspirin and was placed on O2. His chest pain resolved shortly thereafter. Troponin was within normal limits. CXR was unremarkable. ECHO was obtained and revealed the following: EF 55%, mild concentric L ventricular hypertrophy, atypical septal motion consistent with BBB, mildly dilated L ventricle, mild L ventricular diastolic dysfunction. Stress test was performed. It revealed the presence of a small sized, moderate intensity, reversible apical lateral and apex defect possibly due to ischemia. Patient was seen and examined this morning. Patient denies having any chest pain. He denies having any SOB, dizziness, diaphoresis, or cough. He is resting comfortably and has no complaints at this time. Currently on O2 via [place]. Vital signs this morning were within normal limits. Past Med Surg Social Fam HX - Past Medical History Medical history: CHF, COPD, diabetes, hypertension Psychiatric history: no psych history - Past Surgical History Surgical History: non-contributory - Social History Smoking Status: Current every day smoker Packs per day: 1/4 pack Smokeless Tobacco Status: No Alcohol use: occasionally Drug use: none - Family History Mother Hx Family Endocrine Disorder: Yes (DM, CKD) Father Hx Family Neurologic Disorders: Yes (CVA) Medications and Allergies Amlodipine Besylate 10 mg PO DAILY 05/13/16 [History] Furosemide [Lasix] 40 mg PO QAM 05/13/16 [History] Lisinopril/Hydrochlorothiazide [Zestoretic 20-25 mg Tablet] 1 each PO DAILY 11/28 [History] Metformin HCl [Glucophage] 1,000 mg PO BID 05/13/16 [History] Tamsulosin HCl [Flomax] 0.8 mg PO DAILY 05/13/16 [History] Potassium Chloride [K-Tab ER] 20 meq PO BID 05/26/17 [History] Terazosin [Hytrin] 5 mg PO HS 05/26/17 [History] Atorvastatin [Lipitor] 40 mg PO HS 10/28/17 [History] Furosemide [Lasix] 20 mg PO HS 10/28/17 [History] Metoprolol XL (24 HR) Succ [Toprol XL] 100 mg PO DAILY 10/28/17 [History] [place]-3 Acid Ethyl Esters [Lovaza] 2 gm PO BID 10/28/17 [History] SitaGLIPtin [Januvia] 100 mg PO DAILY 10/28/17 [History] 3 Allergy/AdvReac Type Severity Reaction Status Date / Time No Known Allergies Allergy Verified 10/28/17 11:42 All Systems Review: A 10-system review of systems was performed and is negative for pertinent findings except as documented above in the HPI. - Constitutional Constitutional: no fever(s), no frequent falls, no lethargy - Cardiovascular Cardiovascular: no chest pain at rest, no chest pain with exertion, no claudication, no diaphoresis, no irregular heart rhythm, no radiating jaw, neck or arm pain, no leg edema - Neurological Neurological: no dizziness Physical Examination Vital Signs, Last 4 Hours Temp Pulse Resp BP Pulse Ox 10/30/17 11:17 98.3 F 52 16 112/67 94 General: No Apparent Distress Neck: No JVD, Normal carotid pulses Cardiac: Reg Rate and Rhythm, Normal S1 and S2, No Murmur Lungs: Normal Breath Sounds, No Wheeze, Rales, Rhonchi Extremities: No Clubbing, No Cyanosis, No Edema, Normal Pulses Results 10/30/17 05:43 10/30/17 05:43 Lab Results 10/30/17 10/30/17 05:43 05:43 WBC 11.5 H D Hgb 15.6 Hct 46.1 Plt Count 229 Sodium 139 Potassium 3.7 Chloride 103 Carbon Dioxide 27 BUN 26 Creatinine 1.02 Glucose 163 H Calcium 9.2 Magnesium 1.8 Consult Discharge Plan - Plan Referrals: Clemente Rodríguez DO [Primary Care Provider] - <Blanca Solomon - Last Filed: 10/30/17 14:50> Date of Encounter: 10/30/17 - Attending Attestation I examined this patient and my medical decision-making was reviewed with the Resident Physician. I agree with the documented findings, disposition and treatment plan. Mr. Lance presented with chest pain, had negative cardiac biomarkers and no ischemic ECG findings. He subsequently underwent stress testing which I reviewed. This demonstrated a moderate intensity defect concerning for reversible ischemia involving the apical lateral wall and apex, EF 58%. I discussed these findings with the patient. His family member was present at the bedside. He has significant risk factors for CAD including active smoking, diabetes, HTN, HPL. I recommend proceeding with [facility]. The risks, benefits and alternatives of the procedure were discussed with the patient. He does have a history of Stage I CKD - follows with Dr. Mayers. GFR presently is normal. It was described to the patient that PILY is a potential risk. He would like to discuss with family before consideration. We will keep him NPO after midnight tonight in anticipation of proceeding tomorrow. He denies upcoming elective procedures and has never been hospitalized for bleeding. Continue asa, statin, BB. Assessment and Plan Discussion w patient/family: The assessment and plan as outlined above was discussed with the patient and/or family members who expressed understanding and agreement. All questions were answered. Thank you for involving us in the care of your patient. Please call with any questions. History of Present Illness History of present illness: Mr. Lance is a 67 year old male All Systems Review: A 10-system review of systems was performed and is negative for pertinent findings except as documented above in the HPI. Physical Examination Vital Signs, Last 4 Hours Temp Pulse Resp BP Pulse Ox 10/30/17 11:17 98.3 F 52 16 112/67 94 Results 10/30/17 05:43 10/30/17 05:43 Lab Results 10/30/17 10/30/17 05:43 05:43 WBC 11.5 H D Hgb 15.6 Hct 46.1 Plt Count 229 Sodium 139 Potassium 3.7 Chloride 103 Carbon Dioxide 27 BUN 26 Creatinine 1.02 Glucose 163 H Calcium 9.2 Magnesium 1.8
[2017-10-31] MEDS: *HR* Heparin 5,000 UNIT/ML VIAL SQ SCH ×2 (04:57→17:35)
[2017-10-31 05:50] LABS: Basophils % 0.4 %; Eosinophils # 0.1 K/mcL (0.0-0.6); Eosinophils % 0.7 %; Hematocrit 46.1 % (37.5-50.1); Immature Granulocytes % 0.4 % (0-4); Lymphocytes # 2.5 K/mcL (0.6-4.6); Lymphocytes % 30.1 %; Mean Corpuscular HGB Conc 32.5 g/dL (31.6-35.5); Mean Corpuscular Hemoglobin 28.2 pg (28.0-33.3); Mean Corpuscular Volume 86.8 fL (83.0-100.0); Mean Platelet Volume 10.4 fL (9.4-12.4); Monocytes # 0.8 K/mcL (0.0-1.3); Monocytes % 9.4 %; Neutrophils # 4.9 K/mcL (1.6-8.9); Platelet Count 219 K/mcL (140-400); Red Blood Count 5.31 M/mcL (4.19-5.50); Red Cell Distribution Width 13.3 % (11.5-14.5)
[2017-10-31 06:03] LABS: BUN/Creatinine Ratio 23 (6-26); Blood Urea Nitrogen 23 mg/dL (8-26); Calcium 8.9 mg/dL (8.6-10.8); Carbon Dioxide 28 mEq/L (19-29); Chloride 102 mEq/L (98-109); Glucose 170 mg/dL (70-99); Magnesium 1.8 mg/dL (1.6-2.6); Osmolality,Calculated 296 (280-300); Phosphorous 3.2 mg/dL (2.3-4.7); Potassium 3.5 mEq/L (3.5-4.5); Sodium 139 mEq/L (136-145); eGFR For African Americans > 60 (> 60); eGFR For Non-African Americans > 60 (> 60)
[2017-10-31] MEDS: Insulin LISPRO 300 UNITS/3 ML VIAL SQ SCH ×4 (08:22→21:54)
[2017-10-31] MEDS: predniSONE 20 MG TABLET PO SCH (08:24)
[2017-10-31] MEDS: Aspirin 81 MG TAB.CHEW PO SCH (08:25)
[2017-10-31] MEDS: Furosemide 20 MG TABLET PO SCH ×2 (08:25→20:05)
[2017-10-31] MEDS: Metoprolol XL (24 HR) Succ 50 MG TAB.ER.24H PO SCH (08:32)
[2017-10-31] MEDS: amLODIPine 5 MG TABLET PO SCH (08:32)
--- NOTE | 2017-10-31 10:31 | Internal Med Progress Note ---
Date of Encounter: 10/31/17 Time of Encounter: 09:30 - Assessment and plan (1) Abnormal stress test Current Visit: Yes Status: Acute Assessment and plan: Cardiology on board consultation appreciated scheduled for [facility] today (10/31/17) (2) Chest pain Current Visit: Yes Status: Resolved Assessment and plan: resolved at this time abnormal stress test cardiology evaluation requested continue aspirin, lipitor tele monitoring 2D echo reported: LVEF 55%. Mild concentric left ventricular hypertrophy. Atypical septal motion consistent with bundle branch block. Mildly dilated left ventricle. Mild left ventricular diastolic dysfunction. Normal right ventricular structure and function. No evidence of pulmonary hypertension. No significant valvular dysfunction. 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: without custodial use Qualified Code(s): E11.9 - Type 2 diabetes mellitus without complications (4) HTN (hypertension) Current Visit: Yes Status: Chronic Assessment and plan: BP within acceptable range continue home meds Qualifiers: Hypertension type: essential hypertension Qualified Code(s): I10 - Essential (primary) hypertension (5) Hypoxia Current Visit: Yes Status: Resolved Assessment and plan: resolved concern for COPD exacerbation started on systemic steroids upon arrival clinically improved continue PO prednisone(day 2/5) continue bronchodilator support pt reports of having home oxygen but has not been compliant with it (6) COPD (chronic obstructive pulmonary disease) Current Visit: Yes Status: Acute Assessment and plan: as listed above Qualifiers: COPD type: COPD with acute exacerbation Qualified Code(s): J44.1 - Chronic obstructive pulmonary disease with (acute) exacerbation (7) DVT prophylaxis Current Visit: Yes Status: Acute Assessment and plan: Heparin SQ (8) Morbid obesity with BMI of 40.0-44.9, adult Current Visit: Yes Status: Chronic - Subjective Interval history: Patient seen and examined at bedside. Resting in chair and denies any discomfort at this time. Reports of respiratory status back to baseline, anxious about the [facility] today. No chest pain or sob reported scheduled for [facility] today (10/31/17) likely d/c in am if remains clinically stable s/p LHC - Constitutional Vitals: Temp Pulse Resp BP Pulse Ox 97.3 F L 54 15 121/70 96 10/31/17 07:45 10/31/17 07:45 10/31/17 07:45 10/31/17 07:45 10/31/17 07:45 General appearance: Present: cooperative, A&O X 3, morbidly obese, no acute distress, answers questions appropriately - Head Head exam: Present: atraumatic, normocephalic - Eye Eye exam: Present: conjuntiva pink, sclera anicteric - Respiratory Respiratory exam: Present: CTAB. Absent: accessory muscle use, rales, respiratory distress, wheezes - Cardiovascular Cardiovascular exam: Present: RRR, +S1, +S2. Absent: diastolic murmur, gallop, rubs, systolic murmur - GI/Abdominal GI/Abdominal exam: Present: normal bowel sounds, soft, no peritoneal signs. Absent: distended, tenderness - Extremities Exam Extremities exam: Present: warm, radial pulses palpable and symmetrical. Absent : calf tenderness, tenderness - Neurological Exam Neurological exam: Present: alert, oriented X3 - Psychiatric Psychiatric exam: Present: normal affect, normal mood Internal Medicine: Result - Labs CBC & Chem 7: 10/31/17 04:52 10/31/17 04:52 Labs: Short CBC 10/31/17 Range/Units 04:52 WBC 8.3 (4.3-11.1) K/mcL Hgb 15.0 (12.9-16.9) g/dL Hct 46.1 (37.5-50.1) % Plt Count 219 (140-400) K/mcL Neutrophils # 4.9 (1.6-8.9) K/mcL BMP 10/31/17 04:52 Sodium 139 Potassium 3.5 Chloride 102 Carbon Dioxide 28 BUN 23 Creatinine 0.98 Glucose 170 H Calcium 8.9 - ABG Interpretation ABG results: PT/INR, D-dimer PT 11.9 Seconds (9.4-12.1) 10/28/17 12:05 Consult Discharge Plan - Plan Referrals: Clemente Rodríguez DO [Primary Care Provider] -
--- NOTE | 2017-10-31 11:22 | Cardiology Progress Note ---
<Sanjay Ingram - Last Filed: 10/31/17 13:37> Date of Encounter: 10/31/17 Time of Encounter: 11:00 Assessment and Plan (1) Chest pain Current Visit: Yes Status: Resolved CP resolved at this time 2D echo reported: -LVEF 55%. -Mild concentric left ventricular hypertrophy. -Atypical septal motion consistent with bundle branch block. -Mildly dilated left ventricle. -Mild left ventricular diastolic dysfunction. -Normal right ventricular structure and function. -No evidence of pulmonary hypertension. -No significant valvular dysfunction. -Stress test revealed the presence of a small sized, moderate intensity, reversible apical lateral and apex defect possibly due to ischemia Scheduled for cardiac catheterization today. Qualifiers: Chest pain type: unspecified Qualified Code(s): R07.9 - Chest pain, unspecified (2) HTN (hypertension) Current Visit: Yes Status: Chronic Well controlled; BP this morning was 121/70. Plan: -Metoprolol 100 mg PO daily -Atorvastatin 40 mg PO HS -Lasix 20 mg PO HS, 40 mg PO AM -Norvasc 10 mg PO daily Qualifiers: Hypertension type: essential hypertension Qualified Code(s): I10 - Essential (primary) hypertension (3) COPD (chronic obstructive pulmonary disease) Current Visit: Yes Status: Acute Patient's SOB possibly 2/2 COPD exacerbation. Plan: -Continue O2 via NC and oral prednisone -Bronchodilator support -Follow up with pulmonology in the outpatient setting. Qualifiers: COPD type: COPD with acute exacerbation Qualified Code(s): J44.1 - Chronic obstructive pulmonary disease with (acute) exacerbation Discussion w patient/family: The assessment and plan as outlined above was discussed with the patient and/or family members who expressed understanding and agreement. All questions were answered. Thank you for involving us in the care of your patient. Please call with any questions. Subjective Interval history: Patient was seen and examined at bedside this morning. Patient states that he is resting comfortably and has no complaint at this time. Denies having any chest pain, diaphoresis, or shortness of breath. Patient scheduled for cardiac catheterization today. Objective Vital Signs, Last 4 Hours Temp Pulse Resp BP Pulse Ox 10/31/17 07:45 97.3 F L 54 15 121/70 96 General: Conversant, No Apparent Distress HEENT: Atraumatic, Normocephaly, Mucus Membranes Moist Neck: No JVD, Normal carotid pulses Cardiac: Reg Rate and Rhythm, Normal S1 and S2, No Murmur Lungs: Normal Breath Sounds, No Wheeze, Rales, Rhonchi Neuro: Alert and responsive, No focal deficits noted Abdomen: Soft, Non-Tender Skin: No rashes noted on visualized skin Musculoskeletal: No Chest Wall Tenderness Extremities: No Clubbing, No Cyanosis, No Edema, Normal Pulses Results 10/31/17 04:52 10/31/17 04:52 Lab Results 10/31/17 10/31/17 04:52 04:52 WBC 8.3 Hgb 15.0 Hct 46.1 Plt Count 219 Sodium 139 Potassium 3.5 Chloride 102 Carbon Dioxide 28 BUN 23 Creatinine 0.98 Glucose 170 H Calcium 8.9 Magnesium 1.8 Consult Discharge Plan - Plan Referrals: Clemente Rodríguez DO [Primary Care Provider] - <Blanca Solomon - Last Filed: 10/31/17 17:22> Date of Encounter: 10/31/17 Assessment and Plan Discussion w patient/family: I examined this patient and my medical decision-making was reviewed with the Resident Physician. I agree with the documented findings, disposition and treatment plan. Mr. Lance presented to the hospital with chest pain. He underwent a stress test that demonstrated a moderate intensity small area of reversible ischemia. Risk factors included diabetes, active smoking, hypertension, dyslipidemia. Proceeding with left heart catheterization was discussed and agreed upon by the patient. He is now s/p [facility] which demonstrated angiographically normal coronary arteries. He was noted to desaturate during the procedure - apparently has known obstructive sleep apnea. Compliance with CPAP should be emphasized. Recommend outpatient evaluation by PCP for non-cardiac causes of his chest discomfort which may be GI related. Will sign off. Please call with questions. Objective Vital Signs, Last 4 Hours Temp Pulse Resp BP Pulse Ox 10/31/17 17:07 57 18 132/83 90 10/31/17 16:49 55 19 131/82 92 10/31/17 16:36 97.7 F 55 18 151/85 93 10/31/17 15:27 97.5 F L 55 15 115/72 91 Results 10/31/17 04:52 10/31/17 04:52 Lab Results 10/31/17 10/31/17 04:52 04:52 WBC 8.3 Hgb 15.0 Hct 46.1 Plt Count 219 Sodium 139 Potassium 3.5 Chloride 102 Carbon Dioxide 28 BUN 23 Creatinine 0.98 Glucose 170 H Calcium 8.9 Magnesium 1.8
--- NOTE | 2017-10-31 14:29 | Pre-Sedation Evaluation ---
Pre-sedation evaluation - Pre-sedation checklist Date of procedure: 10/31/17 Procedure: heart cath Recent Vitals: Last Vital Signs Temp 97.9 F 10/31/17 12:02 Pulse 55 10/31/17 12:02 Resp 16 10/31/17 12:02 BP 104/63 10/31/17 12:02 Pulse Ox 92 10/31/17 12:02 H&P (including ROS) documented in medical record: Yes Previous reaction to sedatives/anesthetics: No Dietary Status: NPO after Midnight Airway Assessment: Patient can open mouth completely, TMJ function normal, Micrognathia (under-bite, receding chin) absent, Neck with adequate range of motion Dentition: dentures removed Possible difficult airway: No ASA Classification *see protocol: CLASS II-Mild systemic disease Plan of Care: Pt appropriate candidate for procedure/moderate/conscious sedation , Risks/benefits of procedure/sedation discussed w/ patient/family
[2017-10-31] MEDS ORDERED: Nitroglycerin 1,000 MCG/10 ML VIAL IV ONE (15:32)
[2017-10-31] MEDS ORDERED: 0.9 % Sodium Chloride 1,000 ML ONE ×2 (15:32→15:47)
[2017-10-31] MEDS ORDERED: *HR* Heparin 10,000 UNIT/10 ML VIAL ONE (15:32)
[2017-10-31] MEDS ORDERED: *HR* FentaNYL (PF) 100 MCG/2 ML VIAL ONE (15:47)
[2017-10-31] MEDS ORDERED: *HR* Midazolam HCl 2 MG/2 ML VIAL ONE (15:47)
--- NOTE | 2017-10-31 16:25 | Invasive Diagnostic Lab Proc ---
Name: Blayne Lance Date of Study: 10/31/2017 Date: 1950 Ht: 72.8in Medical Record#: [id number] Age: 67 Wt: 302.03lb Gender: Male BSA: 2.56 Order #: [id number] BMI: 40.03 Physicians Procedure Physician: Tete Mahmood MD, FACC Referring MD: Clemente Rodríguez DO Referring MD: Staff Name Position Time In Dariel Barroso RT (R) Event Decorator And Designer 03:55 PM Kaitlynn Segurai RT Monitor 03:55 PM Basim Queen RN Event Decorator And Designer 03:55 PM Indications Indication Unstable Angina Procedures Performed Procedure L HRT ARTERY/VENTRICLE ANGIO Pre-Procedure Checklist Informed consent is complete signed and on chart. H&P is on chart. ID band is on and ID verified with patient. Patient NPO for procedure The procedure was described for the patient and questions were answered. Blood Pressure: 104/63 ECG is on chart. Rhythm: Sinus Bradycardia Plan of Care Patient will tolerate the procedure without complications. Adequate level of comfort will be maintained. Hemodynamics will remain stable Patient will recover from procedure without complications. Respiratory function will be maintained. Cardiac rhythm will remain stable. Patient temperature will be maintained. Patient and/or family have verbalized understanding of the procedure. Patient Education Chief Complaint/Reason for Test: Cardiac Cath Developmental Category: Geriatric (65+ years) Developmentally Appropriate for Age: Yes Learning Barriers: None Education Needs: Procedure Education Method: Verbal Information Taught: Cardiac Cath Educational Evaluation: Able to repeat information Intravenous Access Time IV Size Location DC'd Fluid/Drip Rate Units RN 03:43 PM 20g 1 11/16" Patent On Arrival Rt Antecubital 0.9NaCl 25 ml/hr Basim Queen RN Allergies No Known Allergies Vital Signs Time BP (mmHg) HR (bpm) O2 Sat. RR (bpm) LOC 03:40 PM 104 / 63 55 91 % 15 5 = Fully awake and oriented or at pre-proc level 03:57 PM / % 5 = Fully awake and oriented or at pre-proc level 04:00 PM / % 4 = Oriented but drowsy 03:53 PM 156 / 96 57 89 % 22 03:58 PM 153 / 94 56 88 % 17 04:03 PM 144 / 86 53 86 % 19 04:08 PM 154 / 96 66 88 % 18 Procedural Medications Time Medication Dose Units Method Given By 03:56 PM Oxygen 2 L/min nasal cannula Basim Queen RN 03:56 PM Versed 2 mg Intravenous Basim Queen RN 03:56 PM Fentanyl 50 mcg Intravenous Basim Queen RN 04:00 PM Oxygen 4 L/min nasal cannula Basim Queen RN 04:10 PM Lidocaine 2% 20 ml Subcutaneous Tete Mahmood MD, [facility] ASA Classification: CLASS II- Mild systemic disease (i.e. well-controlled diabetes, hypertension, asthma, cigarette smoking) Riaz Score Preprocedure Postprocedure Activity 2- Moves 4 extremities sustained head lift Activity 2- Moves 4 extremities sustained head lift Circulation 2- SBP +/= 20 points of pre-anesthetic level Circulation 2- SBP +/= 20 points of pre-anesthetic level Consciousness 2- Awake and alert oriented x 3 Consciousness 2- Awake and alert oriented x 3 O2 Saturation 2- Able to maintain O2 satruation of 92% on room air O2 Saturation 2- Able to maintain O2 satruation of 92% on room air Respiratory 2- Able to deep breathe and cough well Respiratory 2- Able to deep breathe and cough well Total Score 10 Total Score 10 Contrast Agent: Isovue Diagnostic Contrast: 81 ml Total Contrast: 81 ml Fluoro Dose: 377 mGy Procedure Log Time Note Enter By 03:40 PM CathStat 03:52 PM [ Select Channel To Zero ] 03:52 PM Case Start 03:52 PM Vitals capture started with the following parameters, Patient=Adult, Interval=5 min, Initial Unagunrl=447 mmHg, Deflation Rate=5 mmHg, Cuff placed on Right Arm 03:53 PM HR=57 bpm, SIVG=321/96 mmhg, SpO2=89.0 %, Resp=22 B/min, Comment=sb 03:55 PM Pt arrived to geoscience laboratory technician 2 at 15:55 scoates 03:55 PM Dariel Barroso RT (R) Position: Event Decorator And Designer Time in: 15:55 scoates 03:55 PM Hannah Segura RT Position: Monitor Time in: 15:55 scoates 03:55 PM Basim Queen RN Position: Event Decorator And Designer Time in: 15:55 scoates 03:56 PM Patient charges- Angio tray pack, Navilyst 3mm J, Pulse Oximetry and ACIST tubing and transducer scoates 03:56 PM Hair removed from procedure site in holding area using clippers. Bilateral groin prepped with Chloraprep by Hannah Segura RT, safety strap applied then patient was draped. Skin intact. scoates 03:56 PM Physician arrived 15:56 scoates 03:56 PM ASA Class CLASS II- Mild systemic disease (i.e. well-controlled diabetes, hypertension, asthma, cigarette smoking) scoates 03:56 PM Meet and greet completed scoates 03:56 PM Sign in performed according to hospital policy. scoates 03:56 PM Procedure start 15:56 scoates 03:56 PM Time: 15:56 Oxygen on at 2 L/min per nasal cannula by Basim Queen RN scoates 03:56 PM Time: 15:56 Versed 2 mg Intravenous Given by Basim Queen RN scoates 03:57 PM Time: 15:56 Fentanyl 50 mcg Intravenous Given by Basim Queen RN scoates 03:57 PM Time: 15:57 Patient comfortable and pain free: Yes scoates 03:57 PM Time: 15:57LOC: 5 = Fully awake and oriented or at pre-proc level scoates 03:57 PM Clinical Presentation: Unstable angina scoates 03:58 PM HR=56 bpm, VRKX=769/94 mmhg, SpO2=88.0 %, Resp=17 B/min 03:59 PM Time out performed according to hospital policy scoates 04:00 PM Time: 16:00 Oxygen on at 4 L/min per nasal cannula by Basim Queen RN scoates 04:00 PM Time: 16:00 20 ml Lidocaine 2% to right groin Subcutaneous Given by Tete Mahmood MD, [facility] [email or web address] 04:00 PM Time: 16:00 Patient comfortable and pain free: Yes [email or web address] 04:00 PM Time: 16:00LOC: 4 = Oriented but drowsy [email or web address] 04:01 PM Access obtained by percutaneous puncture. 5Fr 10cm Terumo Camak sheath placed in right Femoral artery. [id number] [email or web address] 04:01 PM 5Fr FL 4 catheter inserted over the wire [employer] kkallner 04:02 PM wire removed [email or web address] 04:02 PM LCA angiography performed in multiple views. [email or web address] 04:02 PM Recorded Pressure: Ao, HR=54, Condition=Condition 1 (Aorta) Ao 123/85/103 04:03 PM HR=53 bpm, AWHG=060/86 mmhg, SpO2=86.0 %, Resp=19 B/min 04:04 PM Catheter removed kk 04:04 PM 5Fr FR 4 catheter inserted over the wire [employer] 04:04 PM wire removed [email or web address] 04:04 PM RCA angiography performed in multiple views. [email or web address] 04:06 PM Recorded Pressure: Ao, HR=57, Condition=Condition 1 (Aorta) Ao 132/97/115 04:06 PM Catheter removed kk 04:06 PM 5Fr Pigtail catheter inserted over the wire [employer] 04:06 PM wire removed kk 04:07 PM Catheter selectively placed in left ventricle [email or web address] 04:07 PM Bolus angiogram of left Ventricle complete: 8 ml/sec for a total of 24 mls kk 04:07 PM Pressure channel 1 zeroed. 04:07 PM Recorded Pressure: LV, HR=62, Condition=Condition 1 (Left Ventricle) LV 107/6/6 04:08 PM Recorded Pressure: LV, Ao, HR=62, Condition=Condition 1 (Left Ventricle) LV 132/33/52, (Aorta) Ao 123/46/102 04:08 PM HR=66 bpm, EUWU=093/96 mmhg, SpO2=88 %, Resp=18 B/min 04:08 PM wire and catheter removed 04:09 PM Bolus angiogram of right Femoral complete: 4 ml/sec for a total of 7 mls [email or web address] 04:09 PM Procedure completed at 16:09 [email or web address] 04:10 PM Sign out completed: Radiation Dose 377.29 mGy Fluoro Time: 1.3 Isovue 370 - 200ml contrast 81 ml given by Tete Mahmood MD, [facility]. Complications: NoneCardiac Rehab Consult needed: NoConfirmed administered medications: Yes [email or web address] 04:11 PM Isovue 370 - 200ml,1 Bottle(s) used. [email or web address] 04:11 PM Arterial sheath pulled, Mynx closure device used and was Successful [id number] S/N. [email or web address] 04:12 PM Estimated Blood Loss: minimal [email or web address] 04:12 PM Post ECG Sinus Bradycardia [email or web address] 04:12 PM Post Blood Pressure 154/96 [email or web address] 04:12 PM 16:12 Post Pulses Bilateral DP & PT 2+ [email or web address] 04:12 PM Information taught Cardiac Cath and Mynx kkallner 04:12 PM Education needs Procedure, Plan of Care, and Responsibilities of Patient in Care [email or web address] 04:12 PM Learning barriers :None [email or web address] 04:12 PM Education Methods Verbal [email or web address] 04:12 PM Education evaluation Able to repeat information [email or web address] 04:12 PM Site status No bleeding/hematoma - Rt Groin as reported by Dariel Barroso RT (R) at 16:12 [email or web address] 04:12 PM Opsite applied kkallner 04:13 PM Plavix, Effient or Brilinta given No [email or web address] 04:13 PM Delay to floor No [email or web address] 04:13 PM Patient out of room: 16:13 [email or web address] 04:13 PM Family placed in consult room. [email or web address] 04:13 PM Complications: None kk:13 PM Fluoro Time: 1.3 kk 04:13 PM Isovue 370 - 200ml contrast 81 ml given by Tete Mahmood MD, FACC. kkall 04:13 PM Radiation Dose 377.29 mGy [email or web address] 04:15 PM Coronary Dominance: right [email or web address] 04:15 PM Left Main Coronary Artery with 0% stenosis [email or web address] 04:15 PM Proximal Left Anterior Descending Coronary Artery with 0% stenosis. If graft is supplying this territory, 0 % stenosis. [email or web address] 04:15 PM Mid/Distal Left Anterior Descending Coronary Artery and diagonal branches with 0% stenosis. If graft is supplying this area, 0 % stenosis [email or web address] 04:15 PM Circumflex, Obtuse Marginal, Left Posterior Descending, and Left Posterolateral Coronary Arteries with 0 % stenosis. If graft is supplying this area, 0 % stenosis kkallner 04:15 PM Right Coronary, Right Posterior Descending Arteries with Right Posterolateral and Acute Marginal branches with 0 % stenosis. If graft is supplying this area, 0 % stenosis kkallner 04:15 PM Ramus with 0% stenosis. If graft is supplying this area, 0 % stenosis kkallner 04:19 PM Report given to Elizabeth GIL [facility] Room [facility] Complication None None Hemodynamics Pressures Site Systolic/A Wave Diastolic/V Wave Mean AO 123 85 103 AO 132 97 115 LV 107 6 6 LV 132 33 52 AO 123 46 102 Post Procedure Information Blood Pressure: 154/96 mmHg Rhythm: Sinus Bradycardia Post procedural instructions were given Closure Device Time Device Success/Fail MynxGrip Successful Site Checks Time Location Status Staff Sheath In? Note 04:12 PM Rt Groin No bleeding/hematoma Dariel Barroso RT (R) Pulses Time Site Pre-Procedure Post-Procedure Note Bilateral DP & PT 2+ 4:12:00 PM Bilateral DP & PT 2+ Updated by Hannah Segura RT (R) on 10/31/2017 4:20:32 PM electronically signed on 10/31/2017 4:21:11 PM with status of Final
--- NOTE | 2017-10-31 16:32 | Event Note ---
Date of Encounter: 10/31/17 Time of Encounter: 16:30 - Cardiology Event Note Per discussion with Dr. Verna Mahmood, normal coronary angiogram. Eval for noncardiac causes. Will s/o, re-consult PRN, f/u with PCP.
[2017-11-01 03:38] LABS: Basophils % 0.5 %; Eosinophils # 0.1 K/mcL (0.0-0.6); Eosinophils % 0.7 %; Hematocrit 46.6 % (37.5-50.1); Hemoglobin 15.3 g/dL (12.9-16.9); Immature Granulocytes % 0.4 % (0-4); Lymphocytes # 2.6 K/mcL (0.6-4.6); Lymphocytes % 34.4 %; Mean Corpuscular HGB Conc 32.8 g/dL (31.6-35.5); Mean Corpuscular Hemoglobin 28.5 pg (28.0-33.3); Mean Corpuscular Volume 86.9 fL (83.0-100.0); Monocytes # 0.8 K/mcL (0.0-1.3); Monocytes % 10.6 %; Platelet Count 201 K/mcL (140-400); Red Blood Count 5.36 M/mcL (4.19-5.50); Red Cell Distribution Width 13.2 % (11.5-14.5); Segmented Neutrophils % 53.4 %
[2017-11-01 03:52] LABS: BUN/Creatinine Ratio 21 (6-26); Blood Urea Nitrogen 21 mg/dL (8-23); Calcium 8.8 mg/dL (8.6-10.3); Carbon Dioxide 30 mEq/L (23-29); Chloride 103 mEq/L (98-107); Glucose 149 mg/dL (70-105); Magnesium 1.9 mg/dL (1.6-2.6); Osmolality,Calculated 292 (280-300); Phosphorous 3.8 mg/dL (2.7-4.5); Potassium 3.6 mEq/L (3.5-5.1); Sodium 138 mEq/L (136-145); eGFR For African Americans > 60 (> 60); eGFR For Non-African Americans > 60 (> 60)
[2017-11-01] MEDS: *HR* Heparin 5,000 UNIT/ML VIAL SQ SCH (05:24)
[2017-11-01] MEDS: Aspirin 81 MG TAB.CHEW PO SCH (08:12)
[2017-11-01] MEDS: amLODIPine 5 MG TABLET PO SCH (08:12)
[2017-11-01] MEDS: Insulin LISPRO 300 UNITS/3 ML VIAL SQ SCH (08:12)
[2017-11-01] MEDS: predniSONE 20 MG TABLET PO SCH (08:12)
[2017-11-01] MEDS: Furosemide 20 MG TABLET PO SCH (08:12)
[2017-11-01] MEDS: Metoprolol XL (24 HR) Succ 50 MG TAB.ER.24H PO SCH (08:12)
[2017-11-01 11:07] VITALS: BP 115/67
--- NOTE | 2017-11-01 12:19 | Event Note ---
Date of Encounter: 11/01/17 Time of Encounter: 11:20 I went to see patient in the room this morning, patient no where to be found. Pt was reported to have left against medical advise without wanting to wait for prescriptions or paper work. Unable to reach the patient after discharge.
== END 2017-11-01 11:27 | disposition home or self-care (01) ==
LOC: EMEROO 11:40 → 3BNU 11:40 → SUATTDRO 13:28 → 3BNU 13:29
PROVIDERS: ADMIT Internal Medicine Cardiovascular Disease; ATTEND Internal Medicine